=== PATIENT | female | born 2000 | race Caucasian/White ===

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

== ENCOUNTER 2020-05-29 21:17 | Emergency (ER) | payer OTHER ==
[2020-05-29 21:33] VITALS: BP 114/68; PULSE 68; TEMP 98.6; BMI 26.2
--- NOTE | 2020-05-29 22:26 | PDOC ---
History of Present Illness - General Chief Complaint: Injury Stated Complaint: LACERATION Time Seen by Provider: 05/29/20 21:46 History Source: Patient Exam Limitations: No Limitations - History of Present Illness Initial Comments: 05/29/20 21:46 Pt is a 19 y/o female who presents to the ED with complaint of a laceration to her left wrist that she sustained about 1 hour prior to arrival. The patient states that she fell and caught herself on something that she believes is metal. She states her vaccinations are up-to-date and she got a tetanus booster when she was roughly 15 years old. She denies any other complaints at this time. She denies any past medical history or allergies to medications. Past History - Medical History Allergies/Adverse Reactions: Allergies Allergy/AdvReac Type Severity Reaction Status Date / Time No Known Allergies Allergy Verified 08/24/19 14:39 Home Medications: Ambulatory Orders NK [No Known Home Medication] 05/29/16 COPD: No - Reproductive History Is Patient Now?: No - Immunization History Immunization Up to Date: Yes - Psycho-Social/Smoking History Smoking History: Never smoked Have you smoked in the past 12 months: No Number of Cigarettes Smoked Daily: 0 - Substance Abuse Hx (Audit-C & DAST Scrn) How often the patient has a drink containing alcohol: Never Score: In Men: 4 or > Positive; In Women: 3 or > Positive: 0 Screen Result (Pos requires Nsg. Audit-10AR): Negative In the last yr the pt used illegal drug/Rx for NonMed reason: No Score: Yes response is considered Positive: 0 Screen Result (Positive result requires Nsg. DAST-10): Negative Review of Systems - Review of Systems Comments:: 05/29/20 22:39 - Review of Systems Able to Perform ROS?: Yes Constitutional: No: Fever, Chills, Loss of Appetite, Night Sweats, Weakness HEENTM: No: Eye Pain, Vision changes, Ear Pain, Throat Pain, Throat Swelling, Mouth Pain, Difficulty Swallowing Respiratory: No: Cough, Shortness of Breath, Wheezing, Sputum Production Cardiac (ROS): No: Chest Pain, Chest Tightness, Palpitations, Irregular Heart Beat, Edema ABD/GI: No: Nausea, Vomiting, Abdominal Pain, Diarrhea : No Dysuria, No Hematuria, No Frequency, No Urgency Musculoskeletal: No: Muscle Pain, Back Pain, Joint Pain, Muscle Weakness, Neck Pain Integumentary: No: Lesions, Rash; Positive left wrist laceration Neurological: No: Headache, Numbness, Tingling, Weakness, Speech Difficulties *Physical Exam - Vital Signs Last Vital Signs Temp Pulse Resp BP Pulse Ox 98.6 F 68 19 114/68 98 05/29/20 21:31 05/29/20 21:31 05/29/20 21:31 05/29/20 21:31 05/29/20 21:31 - Physical Exam 05/29/20 22:50 - Physical Exam General Appearance: Nourished, Appropriately Dressed, No Distress Neck: Supple, No Lymphadenopathy (R), No Lymphadenopathy (L), No Rigidity, No Decreased range of motion Respiratory/Chest: Lungs Clear, Normal Breath Sounds. No Respiratory Distress, No Accessory Muscle Use Cardiovascular: Regular Rhythm, Regular Rate, S1, S2 Gastrointestinal/Abdominal: Normal Bowel Sounds, Soft. Non-tender, No Guarding, No Rebound, No Rigidity Musculoskeletal: Normal Inspection. No Decreased Range of Motion Extremity: Normal Capillary Refill, Normal Inspection Integumentary: Normal Color, Dry. No Rash; 1 cm left wrist laceration with mild gaping. No active bleeding. No sign of foreign body. 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 NML intact, Fully Oriented, Alert, Normal Mood/Affect, Normal Response Procedures - Laceration/Wound Repair Left Arm Wound Length: to 2.5 cm Wound Explored: clean Wound's Depth, Shape: superficial Irrigated w/ Saline: Yes Betadine Prep: Yes Anesthesia: 1% Lidocaine Amount of Anesthetic (ccs): 1 Wound Repaired With: Sutures Suture Size/Type: 4:0 Number of Sutures: 3 Layer Closure: No Sterile Dressing Applied: Yes Splint Applied: No Sling Applied: No Medical Decision Making - Medical Decision Making 05/29/20 22:23 Assessment: Patient is a 19-year-old female with a 1 cm laceration to the left lateral forearm just proximal to the wrist. Plan: -Suture repair with 3 sutures placed -Procedure tolerated well -Patient given wound care instructions -Patient to return in 7 days for suture removal -She understands and agrees with this treatment plan and she is stable for discharge. Discharge - Discharge Information Problems reviewed: Yes Clinical Impression/Diagnosis: Laceration of wrist, left Qualifiers: Encounter type: initial encounter Qualified Code(s): S61.512A - Laceration without foreign body of left wrist, initial encounter Condition: Stable Disposition: HOME - Follow up/Referral - Patient Discharge Instructions Patient Printed Discharge Instructions: DI for Laceration Repair -- Simple Additional Instructions: Keep the wound clean and dry for 24 hours. After 24 hours you may wash the wound once daily with warm water and soap. You can keep the wound uncovered while at home but you should keep it covered while away from home. Return to the emergency department in 7 days for suture removal. Do not apply any ointments to the wound. - Post Discharge Activity Work/Back to School Note: Back to Work
== END 2020-05-29 23:00 | disposition home or self-care (01) ==
LOC: JER 21:17
PROC: 0HQEXZZ Repair Left Lower Arm Skin, External Approach (ICD-10-PCS; principal; 2020-05-29)
DX: S61.512A Laceration without foreign body of left wrist, initial encounter (principal)
CPT/HCPCS: 99282-25

== ENCOUNTER 2020-06-21 16:47 | Emergency (ER) | payer OTHER ==
[2020-06-21 17:03] VITALS: BP 109/65; PULSE 82; TEMP 98.4; BMI 26.2
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
[2020-06-21] MEDS ORDERED: ACETAMINOPHEN 500 MG TABLET (FP) PO ONE (18:58)
[2020-06-21] MEDS ORDERED: ACETAMINOPHEN 325 MG TABLET (FP) ONE (19:02)
== END 2020-06-21 19:10 | disposition home or self-care (01) ==
LOC: JERFT 16:47 → JER 16:47 → JERFT 19:10
DX: S00.83XA Contusion of other part of head, initial encounter (principal); S05.11XA Contusion of eyeball and orbital tissues, right eye, initial encounter
CPT/HCPCS: 70450-TC; 70486-TC; 99284-25

== ENCOUNTER 2021-04-12 18:51 | Emergency (ER) | payer OTHER ==
[2021-04-12 19:00] VITALS: BP 101/63; PULSE 78; TEMP 98.9; BMI 27.8
== END 2021-04-12 20:16 | disposition home or self-care (01) ==
LOC: JERFT 18:51
PROC: 2W3HX1Z Immobilization of Left Thumb using Splint (ICD-10-PCS; principal; 2021-04-12)
DX: S62.515A Nondisplaced fracture of proximal phalanx of left thumb, initial encounter for closed fracture (principal)
CPT/HCPCS: 73140-TC-LT-FY; 99284-25

== ENCOUNTER 2021-10-10 17:57 | Inpatient (IN) | payer OTHER ==
[2021-10-10] MEDS ORDERED: ELECTROLYTE-148 SOLN 1,000 ML IV SCH ×2 (18:30→21:00)
[2021-10-10 18:49] VITALS: BMI 37.5
[2021-10-10] MEDS ORDERED: AMPICILLIN - 2 GM in SODIUM CHLORIDE 100 ML IVPB ONE (20:00)
[2021-10-10] MEDS ORDERED: AMPICILLIN SODIUM 2 GM VIAL ONE (20:14)
[2021-10-10 20:39] LABS: BASO % 0.1 % (0-2.0); HEMATOCRIT 31.8 % (32.4-45.2); HEMOGLOBIN 11.1 GM/dL (10.7-15.3); LYMPH % 9.3 % (8-40); MCH 30.8 pg (25.7-33.7); MCHC 34.9 g/dl (32.0-36.0); MEAN CELL VOLUME 88.2 fl (80-96); MEAN PLT VOLUME 7.2 fl (7.5-11.1); MONO % 6.9 % (3.8-10.2); NEUT % 83.7 % (42.8-82.8); PLATELET COUNT 281 10^3/uL (134-434); RBC 3.61 M/mm3 (3.60-5.2); RDW 13.3 % (11.6-15.6); WHITE BLOOD COUNT 9.8 K/mm3 (4.0-10.0)
[2021-10-10 20:46] LABS: INR 0.96 (0.83-1.09); PROTHROMBIN TIME (PATIENT) 11.2 SEC (9.7-13.0)
[2021-10-10 20:49] LABS: ACTIVATED PTT 25.1 SECONDS (25.2-36.5)
[2021-10-10] MEDS ORDERED: PROMETHAZINE HCL 25 MG/1 ML VIAL IVPUSH ONE (20:51)
[2021-10-10] MEDS ORDERED: BUTORPHANOL TARTRATE 1 MG/ML VIAL IVPB PRN ×2 (20:51)
[2021-10-10 20:58] LABS: CALCIUM 8.7 mg/dL (8.5-10.1)
[2021-10-10 20:59] LABS: BLOOD UREA NITROGEN 8.2 mg/dL (7-18)
[2021-10-10 21:02] LABS: CREATININE 0.7 mg/dL (0.55-1.3)
[2021-10-10] MEDS ORDERED: FENTANYL/BUPIVACAINE/NS/PF - PCEA - 50 ML DISP.SYRIN EP ONE (23:12)
[2021-10-10] MEDS ORDERED: PCA PUMP NR ONE (23:12)
[2021-10-10] MEDS ORDERED: NALOXONE HCL 0.4 MG/ML VIAL IVPUSH PRN (23:22)
[2021-10-10] MEDS ORDERED: FENTANYL/BUPIVACAINE/NS/PF - PCEA - 50 ML DISP.SYRIN EP SCH (23:30)
[2021-10-10] MEDS ORDERED: BUPIVACAINE HCL/PF 0.25% (2.5MG/ML) 10 ML VIAL ONE (23:31)
[2021-10-11] MEDS ORDERED: AMPICILLIN SODIUM 1 GM VIAL ONE ×2 (00:36→02:46)
[2021-10-11] MEDS ORDERED: METHYLERGONOVINE MALEATE 0.2 MG/1 ML AMP IM PRN (02:38)
[2021-10-11] MEDS ORDERED: WITCH HAZEL 50% (TUCKS) 40 PAD/JAR PAD TP PRN (02:38)
[2021-10-11] MEDS ORDERED: ACETAMINOPHEN 325 MG TABLET (FP) PO PRN (02:38)
[2021-10-11] MEDS ORDERED: oxyCODONE HCL 5 MG TABLET PO PRN (02:38)
[2021-10-11] MEDS ORDERED: BISACODYL 10 MG SUPP.RECT RC PRN (02:38)
[2021-10-11] MEDS ORDERED: BENZOCAINE 28 GM HEMORRHOIDAL OINTMENT TP PRN (02:38)
[2021-10-11] MEDS ORDERED: BENZOCAINE 20% 57 GM BOTTLE TP PRN (02:38)
[2021-10-11] MEDS ORDERED: OXYTOCIN 20 UNITS in 0.9% NS 20 UNIT/1,000 ML INFUS.BAG IV SCH (02:45)
[2021-10-11] MEDS ORDERED: LIDOCAINE HCL 1% PRESERVATIVE FREE - 30ML VIAL ONE (02:46)
[2021-10-11] MEDS ORDERED: OXYTOCIN 20 UNITS in 0.9% NS 20 UNIT/1,000 ML INFUS.BAG IV ONE (02:46)
[2021-10-11] MEDS: AMPICILLIN - 1 GM in SODIUM CHLORIDE 100 ML IVPB SCH ×2 (03:17)
[2021-10-11] MEDS ORDERED: PCA PUMP NR ONE (04:13)
[2021-10-11 06:01] LABS: CORD BASE EXCESS -10.5 mmol/L (0-2); CORD HCO3 16.1 mmHg (20-29); CORD PCO2 38.4 mmHg (30-78); CORD pH 7.241 (7.14-7.44)
[2021-10-11] MEDS: FERROUS SO4 325 MG TABLET (FP) PO SCH ×2 (10:05→12:40)
[2021-10-11] MEDS: PRENATAL VITAMINS W/ FOLIC ACID TABLET (FP) PO SCH (10:05)
[2021-10-11] MEDS: IBUPROFEN 600 MG TABLET (FP) PO PRN (12:40)
[2021-10-11 13:51] LABS: SYPHILIS W/ RPR CONF NON-REACTIVE (NONREACTIVE)
[2021-10-11 14:20] LABS: HIV INTERPRETATION NEGATIVE (NEGATIVE)
[2021-10-12 08:24] LABS: BASO % 0.1 % (0-2.0); EOS % 0.4 % (0-4.5); HEMATOCRIT 26.3 % (32.4-45.2); HEMOGLOBIN 9.2 GM/dL (10.7-15.3); LYMPH % 21.3 % (8-40); MCHC 34.8 g/dl (32.0-36.0); MEAN CELL VOLUME 89.1 fl (80-96); MEAN PLT VOLUME 7.6 fl (7.5-11.1); MONO % 10.4 % (3.8-10.2); NEUT % 67.8 % (42.8-82.8); PLATELET COUNT 287 10^3/uL (134-434); RBC 2.95 M/mm3 (3.60-5.2); RDW 13.1 % (11.6-15.6)
[2021-10-12] MEDS: FERROUS SO4 325 MG TABLET (FP) PO SCH ×3 (09:13→17:21)
[2021-10-12] MEDS: PRENATAL VITAMINS W/ FOLIC ACID TABLET (FP) PO SCH (09:13)
[2021-10-12] MEDS ORDERED: SENNOSIDES/DOCUSATE COMBO (SENNA PLUS) TABLET (UD) PO PRN (22:00)
[2021-10-13] MEDS: IBUPROFEN 600 MG TABLET (FP) PO PRN (06:32)
[2021-10-13] MEDS: FERROUS SO4 325 MG TABLET (FP) PO SCH (07:50)
[2021-10-13] MEDS: PRENATAL VITAMINS W/ FOLIC ACID TABLET (FP) PO SCH (09:37)
[2021-10-13 12:20] VITALS: BP 110/62; PULSE 72; TEMP 97.8
[2021-10-21 13:48] LABS: POC NITRAZINE POS
== END 2021-10-13 11:40 | disposition home or self-care (01) | DRG 560 ==
LOC: JDEL 17:57 → JLDR 18:10 → J3W 10-11 06:16 → JLDR 10-11 06:44 → J3W 10-11 06:45
PROVIDERS: ADMIT Obstetrics & Gynecology; ATTEND Obstetrics & Gynecology
PROC: 0KQM0ZZ Repair Perineum Muscle, Open Approach (ICD-10-PCS; principal; 2021-10-11)
PROC: 10E0XZZ Delivery of Products of Conception, External Approach (ICD-10-PCS; 2021-10-11)
DX: O36.5930 Maternal care for other known or suspected poor fetal growth, third trimester, not applicable or unspecified (principal); O69.81X0 Labor and delivery complicated by cord around neck, without compression, not applicable or unspecified; O70.1 Second degree perineal laceration during delivery; O99.824 Streptococcus B carrier state complicating childbirth; Z3A.39 39 weeks gestation of pregnancy; Z37.0 Single live birth
CPT/HCPCS: 36415; 36600; 59025; 59409; 80048; 80076; 81003; 82803; 83986-QW; 84550; 85025; 85461; 85610; 85730; 86780; 86850; 86900; 86901; 86999; 87389; C9803; U0003; U0005

== ENCOUNTER 2023-02-16 13:00 | Emergency (ER) | payer OTHER ==
[2023-02-16 13:10] VITALS: BMI 30.1
[2023-02-16] MEDS ORDERED: ONDANSETRON 4 MG/2 ML VIAL IVPUSH ONE (13:26)
[2023-02-16] MEDS ORDERED: SODIUM CHLORIDE 0.9% 500 ML INFUS.BAG IV ONE (13:26)
[2023-02-16] MEDS ORDERED: ACETAMINOPHEN 1000 MG/100 ML BAG IVPB ONE (13:26)
[2023-02-16] MEDS ORDERED: KETOROLAC TROMETHAMINE 30 MG/1 ML VIAL IVPUSH ONE (14:06)
[2023-02-16] MEDS ORDERED: ACETAMINOPHEN INJECTION 100 ML IVPB ONE (14:13)
[2023-02-16] MEDS ORDERED: KETOROLAC TROMETHAMINE 30 MG/1 ML VIAL ONE (14:14)
[2023-02-16] MEDS ORDERED: ONDANSETRON 4 MG/2 ML VIAL ONE (14:14)
[2023-02-16 14:58] LABS: BASO % 0.2 % (0-2.0); EOS % 0.3 % (0-4.5); HEMOGLOBIN 12.3 GM/dL (10.7-15.3); LYMPH % 10.2 % (8-40); MCH 28.5 pg (25.7-33.7); MEAN CELL VOLUME 83.7 fl (80-96); MEAN PLT VOLUME 7.1 fl (7.5-11.1); MONO % 7.2 % (3.8-10.2); NEUT % 82.1 % (42.8-82.8); PLATELET COUNT 323 10^3/uL (134-434); RDW 12.8 % (11.6-15.6)
[2023-02-16 15:02] LABS: EPI CELLS >36 /uL (0-25.1); HYALINE CASTS 0 /uL (0-3.1); PH,URINE 5.5 (5.0-8.0); URINE APPEARANCE CLOUDY; URINE BACTERIA 2143 /uL (0-1359); URINE BILIRUBIN NEGATIVE (NEGATIVE); URINE COLOR YELLOW; URINE GLUCOSE (UA) NEGATIVE (NEGATIVE); URINE KETONE NEGATIVE (NEGATIVE); URINE LEUK ESTERASE 1+ (NEGATIVE); URINE NITRITE NEGATIVE (NEGATIVE); URINE PROTEIN 1+ (NEGATIVE); URINE RBC 13 /uL (0-23.9); URINE WBC 92 /uL (0-25.8)
[2023-02-16 15:16] LABS: CALCIUM 8.8 mg/dL (8.5-10.1)
[2023-02-16 15:17] LABS: ALBUMIN 3.8 g/dl (3.4-5.0); BLOOD UREA NITROGEN 6.8 mg/dL (7-18)
[2023-02-16 15:20] LABS: CREATININE 0.9 mg/dL (0.55-1.3)
[2023-02-16 15:21] LABS: BILIRUBIN,TOTAL 0.4 mg/dL (0.2-1); TOT PROT 7.4 g/dl (6.4-8.2)
[2023-02-16] MEDS ORDERED: cefTRIAXone SODIUM 1 GM VIAL ONE (16:12)
[2023-02-16 16:27] VITALS: BP 111/60; PULSE 79; RESP 14
[2023-02-16 16:34] VITALS: TEMP 99.9
== END 2023-02-16 16:34 | disposition home or self-care (01) ==
LOC: JER 13:00
PROC: 3E033NZ Introduction of Analgesics, Hypnotics, Sedatives into Peripheral Vein, Percutaneous Approach (ICD-10-PCS; principal; 2023-02-16)
PROC: 3E033GC Introduction of Other Therapeutic Substance into Peripheral Vein, Percutaneous Approach (ICD-10-PCS; 2023-02-16)
PROC: 3E033GC Introduction of Other Therapeutic Substance into Peripheral Vein, Percutaneous Approach (ICD-10-PCS; 2023-02-16)
PROC: 3E033GC Introduction of Other Therapeutic Substance into Peripheral Vein, Percutaneous Approach (ICD-10-PCS; 2023-02-16)
DX: R11.2 Nausea with vomiting, unspecified (principal); R10.9 Unspecified abdominal pain; R50.9 Fever, unspecified; N30.01 Acute cystitis with hematuria; Z20.822 Contact with and (suspected) exposure to COVID-19
CPT/HCPCS: 0241U-QW; 36415; 80053; 81003; 83690; 85025; 87086; 99284-25

== ENCOUNTER 2024-04-10 22:24 | Emergency (ER) | payer OTHER ==
[2024-04-10 22:51] VITALS: BP 121/72; PULSE 86; RESP 18; TEMP 97.7; BMI 32.3
== END 2024-04-11 02:38 | disposition home or self-care (01) ==
LOC: JER 22:24 → JERFT 22:24 → JER 04-11 02:38
DX: J18.9 Pneumonia, unspecified organism (principal); R05.9 Cough, unspecified; R09.81 Nasal congestion
CPT/HCPCS: 71046-TC-FY; 93005; 93010; 99283-25

== ENCOUNTER 2024-08-30 09:50 | Emergency (ER) | payer OTHER ==
[2024-08-30 10:09] VITALS: BP 105/70; PULSE 77; RESP 17; TEMP 98.5; BMI 29.7
[2024-08-30 11:52] LABS: EPI CELLS 13 /uL (0-25.1); HCG,QUALITATIVE URINE Negative; HYALINE CASTS 0 /uL (0-3.1); PH,URINE 6.5 (5.0-8.0); URINE APPEARANCE CLEAR; URINE BACTERIA 227 /uL (0-1359); URINE BILIRUBIN NEGATIVE (NEGATIVE); URINE COLOR YELLOW; URINE GLUCOSE (UA) NEGATIVE (NEGATIVE); URINE KETONE TRACE (NEGATIVE); URINE LEUK ESTERASE 1+ (NEGATIVE); URINE NITRITE NEGATIVE (NEGATIVE); URINE PROTEIN NEGATIVE (NEGATIVE); URINE RBC 17 /uL (0-23.9); URINE UROBILINOGEN 0.2 mg/dL (0.2-1.0); URINE WBC 53 /uL (0-25.8)
[2024-08-30 12:38] LABS: BASO % 0.5 % (0-2.0); EOS % 0.6 % (0-4.5); HEMATOCRIT 34.8 % (32.4-45.2); HEMOGLOBIN 12.2 GM/dL (10.7-15.3); LYMPH % 33.9 % (8-40); MCH 29.6 pg (25.7-33.7); MEAN CELL VOLUME 84.6 fl (80-96); MEAN PLT VOLUME 7.1 fl (7.5-11.1); MONO % 7.4 % (3.8-10.2); NEUT % 57.6 % (42.8-82.8); PLATELET COUNT 352 10^3/uL (134-434); RBC 4.11 M/mm3 (3.60-5.2); RDW 13.1 % (11.6-15.6); WHITE BLOOD COUNT 6.1 K/mm3 (4.0-10.0)
[2024-08-30 13:05] LABS: POTASSIUM 4.2 mmol/L (3.5-5.1)
[2024-08-30 13:06] LABS: CALCIUM 9.2 mg/dL (8.5-10.1)
[2024-08-30 13:07] LABS: BLOOD UREA NITROGEN 7.4 mg/dL (7-18)
[2024-08-30 13:11] LABS: BILIRUBIN,TOTAL 0.7 mg/dL (0.2-1); CREATININE 0.7 mg/dL (0.55-1.3); TOT PROT 7.2 g/dl (6.4-8.2)
[2024-08-30 16:51] LABS: HIV INTERPRETATION NEGATIVE (NEGATIVE)
== END 2024-08-30 18:23 | disposition home or self-care (01) ==
LOC: JER 09:50
DX: N30.00 Acute cystitis without hematuria (principal); N89.8 Other specified noninflammatory disorders of vagina; M54.50 Low back pain, unspecified; R10.30 Lower abdominal pain, unspecified; R11.0 Nausea
CPT/HCPCS: 36415; 76830-TC; 80053; 81003; 84703; 85025; 86803; 87086; 87389; 87491; 87591; 87661; 93005; 93010; 99285-25